=== PATIENT | male | born 1960 | race African-American/Black ===

== ENCOUNTER 2016-09-19 14:29 | Emergency (ER) | payer OTHER ==
[2016-09-19 14:35] VITALS: BP 169/85
[2016-09-19] MEDS ORDERED: OXYCODONE-ACETAMINOPHEN 5-325 MG TABLET PO ONE (15:15)
[2016-09-19] MEDS ORDERED: LIDOCAINE 5% (700 MG) TRANSDERMAL ADH..PATCH TP ONE (15:16)
--- NOTE | 2016-09-19 15:19 | ER Document Report ---
HPI - HPI Patient complains to provider of: low back pain Onset: Other - chronic back pain Onset/Duration: Persistent Quality of pain: Achy Pain Level: 5 Context: Patient complains of a flareup of his chronic low back pain. Patient states that he is due to have surgery in October. Patient has been going to physical therapy as well as pain management. Patient has been taking meloxicam and gabapentin without relief of his symptoms. Patient does complain of radiculopathy to the left lower extremity down the posterior aspect down to the level of his knee. Patient denies any weakness to his extremities. Patient denies any urinary retention or incontinence. Patient states pain is typical flareups that he has had in the past. Associated Symptoms: Other - Back pain Exacerbated by: Standing, Movement, Walking Relieved by: Denies Similar symptoms previously: Yes Recently seen / treated by doctor: No - ROS ROS below otherwise negative: Yes Systems Reviewed and Negative: Yes All other systems reviewed and negative - CONSTITUTIONAL Constitutional: DENIES: Fever, Chills - NEURO Neurology: DENIES: Weakness - MUSCULOSKELETAL Musculoskeletal: REPORTS: Extremity pain, Back Pain - DERM Skin Color: Normal Skin Problems: None Past Medical History - General Information source: Patient - Social History Smoking Status: Never Smoker Frequency of alcohol use: None Drug Abuse: None Occupation: retired Lives with: Family Family History: Reviewed & Not Pertinent Patient has suicidal ideation: No Patient has homicidal ideation: No - Past Medical History Cardiac Medical History: Reports: Hx Pulmonary Embolism Endocrine Medical History: Reports: Hx Diabetes Mellitus Type 2 Renal/ Medical History: Denies: Hx Peritoneal Dialysis Musculoskeltal Medical History: Reports Hx Arthritis, Reports Hx Musculoskeletal Deformity Psychiatric Medical History: Reports: Hx Depression Past Surgical History: Reports: Hx Orthopedic Surgery - L4-5 fusion in 2014. Rotator cuff. Vertical Provider Document - CONSTITUTIONAL Agree With Documented VS: Yes Exam Limitations: No Limitations General Appearance: WD/WN, No Apparent Distress Notes: PHYSICAL EXAMINATION: GENERAL: Well-appearing, well-nourished and in no acute distress. HEAD: Atraumatic, normocephalic. EYES: sclera clear, anicteric, conjunctiva are normal. ENT: nares patent, Moist mucous membranes. NECK: Normal range of motion, supple no lymphadenopathy LUNGS: respirations unlabored HEART: Regular rate and rhythm without murmurs EXTREMITIES: Normal range of motion, no pitting or edema. No cyanosis. Gait normal, pt ambulates without difficulty BACK: Left lower lumbar paraspinal tenderness, no midline tenderness, no deformities or step-offs. No CVA tenderness. NEUROLOGICAL: Cranial nerves grossly intact. Normal speech. No saddle anesthesia. PSYCH: Normal mood, normal affect. SKIN: Warm, Dry, normal turgor, no rashes or lesions noted. - INFECTION CONTROL TRAVEL OUTSIDE OF THE [place] IN LAST 30 DAYS: No - RESPIRATORY O2 Sat by Pulse Oximetry: 97 Course - Vital Signs Vital signs: Temp Pulse Resp BP Pulse Ox 97.8 F 81 16 169/85 H 97 09/19/16 14:34 09/19/16 14:34 09/19/16 14:34 09/19/16 14:34 09/19/16 14:34 Discharge - Discharge Clinical Impression: Elevated blood pressure reading Low back pain Qualifiers: Chronicity: unspecified Back pain laterality: left Sciatica presence: with sciatica Sciatica laterality: sciatica of left side Qualified Code(s): M54.42 - Lumbago with sciatica, left side Condition: Stable Disposition: HOME, SELF-CARE Instructions: Warm Packs ([facility]), Ice Packs ([facility]), Oral Narcotic Medication ([facility]) , Low Back Pain ([facility]), Sciatica ([facility]) Additional Instructions: Return immediately for any new or worsening symptoms Followup with your primary care provider, call tomorrow to make a followup appointment Prescriptions: Oxycodone HCl/Acetaminophen [Percocet 5-325 mg Tablet] 1 tab PO ASDIR PRN #20 tablet PRN Reason: Forms: Elevated Blood Pressure Referrals: [facility] [Provider Group] - 09/21/16
== END 2016-09-19 16:30 | disposition home or self-care (01) ==
LOC: ER 14:29
DX: M54.42 Lumbago with sciatica, left side (principal); R03.0 Elevated blood-pressure reading, without diagnosis of hypertension; M54.5 Low back pain; G89.29 Other chronic pain
CPT/HCPCS: 99283

== ENCOUNTER 2019-04-03 12:23 | Emergency (ER) | payer OTHER ==
[2019-04-03 12:32] VITALS: BP 159/72
== END 2019-04-03 13:20 | disposition left against medical advice (07) ==
LOC: ER 12:23
DX: Z53.21 Procedure and treatment not carried out due to patient leaving prior to being seen by health care provider (principal)